=== PATIENT | female | born 1995 | race African-American/Black ===

== ENCOUNTER 2018-06-12 03:11 | Inpatient (IN) ==
[2018-06-12] MEDS ORDERED: MEPERIDINE 50 MG/1 ML VIAL IV PRN (03:33)
[2018-06-12] MEDS ORDERED: BUTORPHANOL 2 MG/ML VIAL IV PRN (03:33)
[2018-06-12] MEDS ORDERED: ONDANSETRON 4 MG/2 ML VIAL IV PRN (03:33)
[2018-06-12] MEDS ORDERED: PROMETHAZINE 25 MG/1 ML VIAL IM ONE (03:35)
[2018-06-12] MEDS ORDERED: FAMOTIDINE 20 MG/2 ML VIAL IV ONE (03:35)
[2018-06-12] MEDS ORDERED: LACTATED RINGERS 1,000 ML IV ONE (03:35)
[2018-06-12] MEDS ORDERED: CITRIC ACID/SODIUM CITRATE 30 ML UDCUP PO ONE (03:35)
[2018-06-12] MEDS ORDERED: diphenhydrAMINE 50 MG/1 ML VIAL IV PRN (03:35)
[2018-06-12] MEDS ORDERED: hydrOXYzine HCL 25 MG/1 ML VIAL IM PRN (03:35)
[2018-06-12] MEDS ORDERED: ePHEDrine 50 MG/ML AMP IV PRN (03:35)
[2018-06-12] MEDS ORDERED: NALOXONE 0.4 MG/ML VIAL IV PRN (03:35)
[2018-06-12 03:58] LABS: Basophils % 0.4 % (0.0-0.8); Eosinophils # 0.1 10*3/uL (0.0-0.87); Eosinophils % 0.7 % (0.00-10.9); Hematocrit 40.6 VOL% (35.7-47.0); Hemoglobin 13.1 GM/DL (12.0-16.0); Immature Granulocytes % 0.2 %; Immature Granulocytes Absolute 0.02 #; Lymphocytes # 1.9 10*3/uL (1.4-4.0); Mean Corpuscular HGB Conc 32.3 GM/DL (32-36); Mean Corpuscular Hemoglobin 31 PG (27-34); Mean Corpuscular Volume 96.2 FL (87-102); Mean Platelet Volume 11.4 FL (9.6-12.0); Monocytes # 0.8 10*3/uL (0.11-0.8); Monocytes % 10.1 % (1.7-12.7); Neutrophils # 5.3 10*3/uL (1.4-7.4); Neutrophils % 65.6 % (38.7-73.9); Platelet Count 168 T/CUMM (130-400); Red Blood Count 4.22 MC/CUMM (3.8-5.5); Red Cell Distribution Width 13.7 % (9.3-17.3)
[2018-06-12] MEDS ORDERED: OXYTOCIN/LR 20 UNIT/1,000 ML BAG IV SCH (04:00)
[2018-06-12] MEDS ORDERED: fentaNYL 2 MCG/ROPIV 0.2% EPID 100 ML EPIDURAL SCH (04:00)
[2018-06-12] MEDS ORDERED: LACTATED RINGERS 1,000 ML IV SCH ×2 (04:00→13:00)
[2018-06-12] MEDS ORDERED: miSOPROStol 200 MCG TABLET ONE (10:22)
[2018-06-12] MEDS ORDERED: LIDOCAINE 1% 50 ML VIAL ONE (10:22)
[2018-06-12] MEDS ORDERED: CARBOPROST TROMETHAMINE 250 MCG/ML AMP IM ONE (10:22)
[2018-06-12] MEDS ORDERED: METHYLERGONOVINE 0.2 MG/1 ML AMP ONE (10:22)
[2018-06-12] MEDS ORDERED: MAGNESIUM HYDROXIDE SUSP 30 ML UDCUP PO PRN (12:33)
[2018-06-12] MEDS ORDERED: ACETAMINOPHEN 325 MG TABLET PO PRN (12:33)
[2018-06-12] MEDS ORDERED: BISACODYL 10 MG SUPP RECTAL PRN (12:33)
[2018-06-12] MEDS: DOCUSATE SODIUM 100 MG CAPSULE PO SCH (20:44)
[2018-06-12] MEDS: IBUPROFEN 800 MG TABLET PO PRN (21:19)
[2018-06-13 05:21] LABS: Basophils % 0.3 % (0.0-0.8); Eosinophils # 0.1 10*3/uL (0.0-0.87); Eosinophils % 0.7 % (0.00-10.9); Hematocrit 38.7 VOL% (35.7-47.0); Hemoglobin 12.5 GM/DL (12.0-16.0); Immature Granulocytes % 0.4 %; Immature Granulocytes Absolute 0.05 #; Lymphocytes % 16.9 % (21.3-54.2); Mean Corpuscular HGB Conc 32.3 GM/DL (32-36); Mean Corpuscular Hemoglobin 31 PG (27-34); Mean Corpuscular Volume 95.3 FL (87-102); Mean Platelet Volume 11.6 FL (9.6-12.0); Monocytes # 1.1 10*3/uL (0.11-0.8); Monocytes % 9.4 % (1.7-12.7); Neutrophils # 8.7 10*3/uL (1.4-7.4); Neutrophils % 72.3 % (38.7-73.9); Platelet Count 157 T/CUMM (130-400); Red Blood Count 4.06 MC/CUMM (3.8-5.5); Red Cell Distribution Width 13.9 % (9.3-17.3); White Blood Count 12.1 T/CUMM (4-12)
[2018-06-13] MEDS: MULTIVITAMIN (PRENATAL) TABLET PO SCH (10:08)
[2018-06-13] MEDS: DOCUSATE SODIUM 100 MG CAPSULE PO SCH ×2 (10:08→20:09)
[2018-06-13] MEDS: IBUPROFEN 800 MG TABLET PO PRN (11:35)
[2018-06-14 07:16] VITALS: BP 119/80
[2018-06-14] MEDS: MULTIVITAMIN (PRENATAL) TABLET PO SCH (09:29)
[2018-06-14] MEDS: DOCUSATE SODIUM 100 MG CAPSULE PO SCH (09:29)
[2018-06-14] MEDS ORDERED: DIPH/TET/ACEL PERT BOOSTER VACCINE 0.5 ML VIAL IM ONE (09:43)
== END 2018-06-14 10:30 | disposition home or self-care (01) | DRG 560 ==
LOC: N.LDOUT 03:11 → N.LD 03:45 → N.OB 15:16
PROVIDERS: ADMIT Obstetrics & Gynecology; ATTEND Obstetrics & Gynecology

== ENCOUNTER 2020-04-12 08:33 | Inpatient (IN) ==
[2020-04-12 09:43] LABS: Basophils % 0.2 % (0.0-0.8); Hematocrit 43.2 VOL% (35.7-47.0); Hemoglobin 14.6 GM/DL (12.0-16.0); Immature Granulocytes % 0.2 %; Immature Granulocytes Absolute 0.01 #; Lymphocytes # 0.8 10*3/uL (1.4-4.0); Lymphocytes % 16.1 % (21.3-54.2); Mean Corpuscular HGB Conc 33.8 GM/DL (32-36); Mean Corpuscular Volume 93.5 FL (87-102); Mean Platelet Volume 9.3 FL (9.6-12.0); Monocytes % 7.7 % (1.7-12.7); Neutrophils % 75.8 % (38.7-73.9); Platelet Count 225 T/CUMM (130-400); Red Blood Count 4.62 MC/CUMM (3.8-5.5); Red Cell Distribution Width 13.4 % (9.3-17.3); White Blood Count 5.2 T/CUMM (4-12)
[2020-04-12 10:04] LABS: Alanine Aminotransferase 55 U/L (13-56); Albumin 2.6 G/DL (3.4-5.0); Alkaline Phosphatase 118 U/L (45-117); Aspartate Amino Transferase 55 U/L (0-37); Bilirubin,Total < 0.39 MG/DL (0.2-1.0); Blood Urea Nitrogen 4 MG/DL (7-18); Calcium 8.5 MG/DL (8.5-10.1); Estimated Glom Filtration Rate 200 ML/MIN; Glucose 137 MG/DL (74-106); Osmolality,Calculated 271.8 MOS/KG (273-304); Total Protein 6.5 G/DL (6.4-8.3)
[2020-04-12] MEDS ORDERED: cefTRIAXone 1,000 MG in SODIUM CHLORIDE 0.9% 100 ML IV STA (11:13)
[2020-04-12] MEDS ORDERED: SODIUM CHLORIDE 0.9% 1,000 ML IV STA (12:02)
[2020-04-12] MEDS ORDERED: DEXTROSE 50% 25 GM/50 ML VIAL IV PRN (13:38)
[2020-04-12] MEDS ORDERED: GLUCAGON 1 MG VIAL IM PRN (13:38)
[2020-04-12] MEDS ORDERED: AZITHROMYCIN INJ 500 MG in SODIUM CHLORIDE 0.9% 250 ML IV ONE (16:06)
[2020-04-12] MEDS: SODIUM CHLORIDE 0.45% 1,000 ML IV SCH (17:00)
[2020-04-12] MEDS: HEPARIN 5,000 UNIT/1 ML VIAL SUBCUT SCH (21:06)
[2020-04-13] MEDS: SODIUM CHLORIDE 0.45% 1,000 ML IV SCH ×3 (03:39→22:03)
[2020-04-13 04:50] LABS: Alanine Aminotransferase 68 U/L (13-56); Albumin 1.7 G/DL (3.4-5.0); Alkaline Phosphatase 108 U/L (45-117); Aspartate Amino Transferase 73 U/L (0-37); Bilirubin,Total < 0.39 MG/DL (0.2-1.0); Blood Urea Nitrogen 4 MG/DL (7-18); Estimated Glom Filtration Rate 213 ML/MIN; Glucose 105 MG/DL (74-106); Osmolality,Calculated 269.8 MOS/KG (273-304)
[2020-04-13 07:23] LABS: Hematocrit 37.8 VOL% (35.7-47.0); Hemoglobin 12.8 GM/DL (12.0-16.0); Immature Granulocytes % 0.6 %; Immature Granulocytes Absolute 0.03 #; Lymphocytes # 0.9 10*3/uL (1.4-4.0); Lymphocytes % 17.3 % (21.3-54.2); Mean Corpuscular HGB Conc 33.9 GM/DL (32-36); Mean Corpuscular Volume 93.1 FL (87-102); Monocytes % 7.7 % (1.7-12.7); Neutrophils % 74.4 % (38.7-73.9); Platelet Count 238 T/CUMM (130-400); Red Blood Count 4.06 MC/CUMM (3.8-5.5); Red Cell Distribution Width 13.5 % (9.3-17.3); White Blood Count 4.9 T/CUMM (4-12)
[2020-04-13 07:51] LABS: Band Neutrophils 1 % (0-10); Hypochromasia Slight; Lymphocytes 15 % (20-55); Microcytosis 1+; Platelet Estimate Adequate; Segmented Neutrophils 76 % (50-85); Total Cells Counted 100
[2020-04-13] MEDS: HEPARIN 5,000 UNIT/1 ML VIAL SUBCUT SCH ×2 (10:35→22:00)
[2020-04-13] MEDS: AZITHROMYCIN 250 MG TABLET PO SCH (10:35)
[2020-04-13] MEDS ORDERED: ACETAMINOPHEN 325 MG TABLET PO PRN (16:02)
[2020-04-13] MEDS ORDERED: ACETAMINOPHEN 325 MG TABLET PO SCH (22:00)
[2020-04-14 05:48] LABS: Basophils % 0.2 % (0.0-0.8); Hematocrit 38.7 VOL% (35.7-47.0); Immature Granulocytes % 0.3 %; Immature Granulocytes Absolute 0.02 #; Lymphocytes # 0.9 10*3/uL (1.4-4.0); Lymphocytes % 15.3 % (21.3-54.2); Mean Corpuscular HGB Conc 33.6 GM/DL (32-36); Mean Platelet Volume 9.2 FL (9.6-12.0); Monocytes % 9.4 % (1.7-12.7); Neutrophils % 74.8 % (38.7-73.9); Platelet Count 275 T/CUMM (130-400); Red Blood Count 4.16 MC/CUMM (3.8-5.5); Red Cell Distribution Width 13.4 % (9.3-17.3); White Blood Count 5.9 T/CUMM (4-12)
[2020-04-14 06:14] LABS: Hypochromasia 1+; Microcytosis 1+; Platelet Estimate Normal
[2020-04-14 06:23] LABS: Calcium 8.3 MG/DL (8.5-10.1); Osmolality,Calculated 269.8 MOS/KG (273-304)
[2020-04-14] MEDS: SODIUM CHLORIDE 0.45% 1,000 ML IV SCH ×3 (06:23→15:10)
[2020-04-14] MEDS: HEPARIN 5,000 UNIT/1 ML VIAL SUBCUT SCH (10:02)
[2020-04-14] MEDS: AZITHROMYCIN 250 MG TABLET PO SCH (10:03)
[2020-04-14] MEDS ORDERED: BETAMETH SODIUM PHOS/ACETATE 30 MG/5 ML VIAL ONE (11:05)
[2020-04-14] MEDS ORDERED: BETAMETH SODIUM PHOS/ACETATE 30 MG/5 ML VIAL IM SCH (12:00)
[2020-04-14 15:03] LABS: INR 0.9; PT Patient Result 9.7 SECS (9.8-11.9); Partial Thromboplastin Time 35.5 SECS (23.9-33.8)
[2020-04-14] MEDS ORDERED: CITRIC ACID/SODIUM CITRATE 30 ML UDCUP ONE (17:38)
[2020-04-14] MEDS ORDERED: FAMOTIDINE 20 MG/2 ML VIAL IV ONE ×2 (17:38→17:39)
[2020-04-14] MEDS ORDERED: ceFAZolin 2,000 MG in PREMIX 1 EACH IV ONE (17:38)
[2020-04-14] MEDS ORDERED: CITRIC ACID/SODIUM CITRATE 30 ML UDCUP PO ONE (17:38)
[2020-04-14] MEDS ORDERED: OXYTOCIN/LR 30 UNIT/1,000 ML BAG IV ONE (17:44)
[2020-04-14] MEDS ORDERED: miSOPROStoL 200 MCG TABLET ONE (17:44)
[2020-04-14] MEDS ORDERED: OXYTOCIN 10 UNIT/ML VIAL IM ONE (17:44)
[2020-04-14] MEDS ORDERED: CARBOPROST TROMETHAMINE 250 MCG/ML AMP IM ONE (17:44)
[2020-04-14] MEDS ORDERED: TRANEXAMIC ACID 1,000 MG/10 ML VIAL ONE (17:44)
[2020-04-14] MEDS ORDERED: METHYLERGONOVINE 0.2 MG/1 ML AMP ONE (17:44)
[2020-04-14] MEDS ORDERED: SODIUM CHLORIDE 0.9% 0 ML IV ONE (17:45)
[2020-04-14] MEDS ORDERED: OXYTOCIN 10 UNIT/ML VIAL ONE (17:45)
[2020-04-14] MEDS ORDERED: LACTATED RINGERS 1,000 ML IV ONE (17:49)
[2020-04-14] MEDS ORDERED: SUCCINYLCHOLINE 200 MG/10 ML VIAL ONE (18:32)
[2020-04-14] MEDS ORDERED: propofoL 200 MG/20 ML VIAL IV ONE (18:32)
[2020-04-14 18:34] LABS: Bilirubin,Urine Negative (Negative); Blood, Urine Negative (Negative); Glucose,Urine (UA) Negative (Negative); Ketones,Urine 20 mg/dL (Negative); Mucus,Urine Occasional /LPF (Occasional); Nitrite,Urine Negative (Negative); Protein,Urine Negative; RBC,Urine 1 /HPF (0-4); Squamous Epithelial Cell,Urine Occasional /HPF (0-10); Urine Appearance CLEAR (Clear); Urine Color Yellow (Yellow); Urine Specific Gravity 1.009 (1.001-1.035); WBC,Urine 1 /HPF (0-6)
[2020-04-14] MEDS ORDERED: fentaNYL 250 MCG/5 ML VIAL ONE (19:04)
[2020-04-14 19:09] LABS: Cord Arterial Blood HCO3 22.6 MMOL/L
[2020-04-14 19:12] LABS: Cord Venous Blood PCO2 49.7 MMHG; Cord Venous Blood PO2 32.1
[2020-04-14] MEDS ORDERED: MAGNESIUM HYDROXIDE SUSP 30 ML UDCUP PO PRN (20:01)
[2020-04-14] MEDS ORDERED: SIMETHICONE CHEW 80 MG TABLET PO PRN (20:01)
[2020-04-14] MEDS ORDERED: OXYTOCIN/LR 20 UNIT/1,000 ML BAG IV ONE (20:01)
[2020-04-14] MEDS ORDERED: ACETAMINOPHEN 325 MG TABLET PO PRN (20:01)
[2020-04-14] MEDS ORDERED: ONDANSETRON 4 MG/2 ML VIAL IV PRN (20:01)
[2020-04-14] MEDS ORDERED: RHO(D) IMMUNE GLOBULIN 300 MCG SYRINGE IM ONE (20:01)
[2020-04-14] MEDS ORDERED: MEPERIDINE 50 MG/1 ML VIAL IV PRN (20:03)
[2020-04-14] MEDS ORDERED: ONDANSETRON 4 MG/2 ML VIAL ONE (20:24)
[2020-04-14] MEDS ORDERED: ROCURONIUM 50 MG/5 ML VIAL IV ONE (20:24)
[2020-04-14] MEDS ORDERED: PHENYLEPHRINE 1 MG/10 ML SYRINGE IV ONE (20:24)
[2020-04-14] MEDS ORDERED: SEVOFLURANE 1 UNIT/15 MINUTE INH ONE (20:24)
[2020-04-14] MEDS: HYDROmorphone 2 MG/1 ML VIAL IV PRN ×2 (20:50→22:55)
[2020-04-14] MEDS: LACTATED RINGERS 1,000 ML IV SCH (23:02)
[2020-04-14] MEDS: DOCUSATE SODIUM 100 MG CAPSULE PO SCH (23:03)
[2020-04-15] MEDS: HYDROmorphone 2 MG/1 ML VIAL IV PRN ×3 (02:20→11:53)
[2020-04-15] MEDS: LACTATED RINGERS 1,000 ML IV SCH ×2 (05:23→17:22)
[2020-04-15 05:55] LABS: Basophils % 0.1 % (0.0-0.8); Hematocrit 41.1 VOL% (35.7-47.0); Hemoglobin 13.8 GM/DL (12.0-16.0); Immature Granulocytes % 0.5 %; Immature Granulocytes Absolute 0.04 #; Lymphocytes % 11.7 % (21.3-54.2); Mean Corpuscular HGB Conc 33.6 GM/DL (32-36); Mean Corpuscular Volume 94.5 FL (87-102); Mean Platelet Volume 8.8 FL (9.6-12.0); Monocytes % 7.6 % (1.7-12.7); Neutrophils % 80.1 % (38.7-73.9); Platelet Count 288 T/CUMM (130-400); Red Blood Count 4.35 MC/CUMM (3.8-5.5); Red Cell Distribution Width 13.2 % (9.3-17.3); White Blood Count 8.2 T/CUMM (4-12)
[2020-04-15 06:20] LABS: Calcium 8.5 MG/DL (8.5-10.1); Osmolality,Calculated 271.7 MOS/KG (273-304)
[2020-04-15] MEDS ORDERED: REMDESIVIR 200 MG in SODIUM CHLORIDE 0.9% 210 ML IV ONE (10:00)
[2020-04-15] MEDS: MULTIVITAMIN (PRENATAL) TABLET PO SCH (10:09)
[2020-04-15] MEDS: AZITHROMYCIN 250 MG TABLET PO SCH (10:09)
[2020-04-15] MEDS: DOCUSATE SODIUM 100 MG CAPSULE PO SCH ×2 (10:09→23:22)
[2020-04-15] MEDS ORDERED: SODIUM CHLORIDE 0.9% 1,000 ML IV PRN (13:35)
[2020-04-15] MEDS: IBUPROFEN 800 MG TABLET PO PRN (16:05)
[2020-04-16 03:17] LABS: Basophils % 0.1 % (0.0-0.8); Eosinophils % 0.1 % (0.00-10.9); Hematocrit 39.1 VOL% (35.7-47.0); Hemoglobin 13.1 GM/DL (12.0-16.0); Immature Granulocytes % 0.5 %; Immature Granulocytes Absolute 0.04 #; Lymphocytes # 1.1 10*3/uL (1.4-4.0); Lymphocytes % 13.9 % (21.3-54.2); Mean Corpuscular HGB Conc 33.5 GM/DL (32-36); Mean Platelet Volume 8.8 FL (9.6-12.0); Monocytes % 8.4 % (1.7-12.7); Platelet Count 320 T/CUMM (130-400); Red Blood Count 4.16 MC/CUMM (3.8-5.5); Red Cell Distribution Width 13.3 % (9.3-17.3); White Blood Count 7.9 T/CUMM (4-12)
[2020-04-16 03:33] LABS: Calcium 8.9 MG/DL (8.5-10.1); Osmolality,Calculated 274.5 MOS/KG (273-304)
[2020-04-16] MEDS: HYDROmorphone 2 MG/1 ML VIAL IV PRN ×2 (08:17→22:11)
[2020-04-16] MEDS: REMDESIVIR 100 MG in SODIUM CHLORIDE 0.9% 100 ML IV SCH (10:47)
[2020-04-16] MEDS: MULTIVITAMIN (PRENATAL) TABLET PO SCH ×3 (10:50→15:46)
[2020-04-16] MEDS: DOCUSATE SODIUM 100 MG CAPSULE PO SCH ×2 (10:50→22:11)
[2020-04-16] MEDS: IBUPROFEN 800 MG TABLET PO PRN (10:51)
[2020-04-16] MEDS: AZITHROMYCIN 250 MG TABLET PO SCH (10:54)
[2020-04-16] MEDS: SODIUM CHLORIDE 0.45% 1,000 ML IV SCH ×2 (15:43→15:44)
[2020-04-16] MEDS: LACTATED RINGERS 1,000 ML IV SCH ×2 (15:45→22:10)
[2020-04-17] MEDS: LACTATED RINGERS 1,000 ML IV SCH ×2 (04:38→13:59)
[2020-04-17 07:06] LABS: Basophils % 0.2 % (0.0-0.8); Eosinophils % 0.6 % (0.00-10.9); Hematocrit 39.2 VOL% (35.7-47.0); Immature Granulocytes % 0.3 %; Immature Granulocytes Absolute 0.02 #; Lymphocytes % 16.5 % (21.3-54.2); Mean Corpuscular HGB Conc 33.2 GM/DL (32-36); Mean Corpuscular Volume 95.4 FL (87-102); Mean Platelet Volume 8.8 FL (9.6-12.0); Monocytes % 9.3 % (1.7-12.7); Neutrophils % 73.1 % (38.7-73.9); Platelet Count 346 T/CUMM (130-400); Red Blood Count 4.11 MC/CUMM (3.8-5.5); Red Cell Distribution Width 13.4 % (9.3-17.3); White Blood Count 6.3 T/CUMM (4-12)
[2020-04-17 07:29] LABS: Calcium 8.6 MG/DL (8.5-10.1); Osmolality,Calculated 279.1 MOS/KG (273-304)
[2020-04-17] MEDS: MULTIVITAMIN (PRENATAL) TABLET PO SCH ×2 (10:15)
[2020-04-17] MEDS: REMDESIVIR 100 MG in SODIUM CHLORIDE 0.9% 100 ML IV SCH (10:15)
[2020-04-17] MEDS: DOCUSATE SODIUM 100 MG CAPSULE PO SCH ×2 (10:15→21:40)
[2020-04-17] MEDS: ENOXAPARIN 40 MG/0.4 ML SYRINGE SUBCUT SCH (12:15)
[2020-04-18 05:51] LABS: Calcium 8.2 MG/DL (8.5-10.1); Osmolality,Calculated 277.3 MOS/KG (273-304)
[2020-04-18 06:09] LABS: Basophils % 0.2 % (0.0-0.8); Eosinophils # 0.1 10*3/uL (0.0-0.87); Eosinophils % 1.5 % (0.00-10.9); Hemoglobin 12.7 GM/DL (12.0-16.0); Immature Granulocytes % 0.5 %; Immature Granulocytes Absolute 0.03 #; Lymphocytes # 1.4 10*3/uL (1.4-4.0); Lymphocytes % 26.3 % (21.3-54.2); Mean Corpuscular HGB Conc 32.6 GM/DL (32-36); Mean Corpuscular Volume 95.6 FL (87-102); Mean Platelet Volume 9.6 FL (9.6-12.0); Monocytes % 11.5 % (1.7-12.7); Platelet Count 358 T/CUMM (130-400); Red Blood Count 4.08 MC/CUMM (3.8-5.5); Red Cell Distribution Width 13.2 % (9.3-17.3); White Blood Count 5.5 T/CUMM (4-12)
[2020-04-18] MEDS: LACTATED RINGERS 1,000 ML IV SCH ×3 (07:17→16:30)
[2020-04-18] MEDS: DOCUSATE SODIUM 100 MG CAPSULE PO SCH ×2 (08:38→22:15)
[2020-04-18] MEDS: MULTIVITAMIN (PRENATAL) TABLET PO SCH ×2 (08:38)
[2020-04-18] MEDS: REMDESIVIR 100 MG in SODIUM CHLORIDE 0.9% 100 ML IV SCH (09:11)
[2020-04-18] MEDS ORDERED: cefTRIAXone 1,000 MG in SYRINGE 1 EACH IV SCH (11:00)
[2020-04-18] MEDS: ENOXAPARIN 40 MG/0.4 ML SYRINGE SUBCUT SCH (12:11)
[2020-04-18] MEDS: AZITHROMYCIN 250 MG TABLET PO SCH (12:12)
[2020-04-19] MEDS: LACTATED RINGERS 1,000 ML IV SCH ×2 (00:16→07:03)
[2020-04-19 05:33] VITALS: BP 140/94
[2020-04-19 06:47] LABS: Basophils % 0.4 % (0.0-0.8); Eosinophils # 0.1 10*3/uL (0.0-0.87); Eosinophils % 2.6 % (0.00-10.9); Hematocrit 41.6 VOL% (35.7-47.0); Hemoglobin 13.6 GM/DL (12.0-16.0); Immature Granulocytes % 0.4 %; Immature Granulocytes Absolute 0.02 #; Lymphocytes # 1.4 10*3/uL (1.4-4.0); Lymphocytes % 28.9 % (21.3-54.2); Mean Corpuscular HGB Conc 32.7 GM/DL (32-36); Mean Corpuscular Volume 95.2 FL (87-102); Mean Platelet Volume 9.3 FL (9.6-12.0); Monocytes % 12.9 % (1.7-12.7); Neutrophils % 54.8 % (38.7-73.9); Platelet Count 422 T/CUMM (130-400); Red Blood Count 4.37 MC/CUMM (3.8-5.5); Red Cell Distribution Width 13.1 % (9.3-17.3)
[2020-04-19 06:58] LABS: Calcium 8.7 MG/DL (8.5-10.1); Osmolality,Calculated 277.3 MOS/KG (273-304)
[2020-04-19] MEDS: AZITHROMYCIN 250 MG TABLET PO SCH (10:05)
[2020-04-19] MEDS: DOCUSATE SODIUM 100 MG CAPSULE PO SCH (10:05)
[2020-04-19] MEDS: MULTIVITAMIN (PRENATAL) TABLET PO SCH (10:05)
[2020-04-19] MEDS: REMDESIVIR 100 MG in SODIUM CHLORIDE 0.9% 100 ML IV SCH (10:31)
== END 2020-04-19 12:15 | disposition home or self-care (01) | DRG 540 ==
LOC: N.ED 08:33 → SUATTDRO 13:38 → N.EDINP 13:38 → N.2E 04-13 12:56 → N.LD 04-14 11:58 → N.2E 04-16 15:58
PROVIDERS: ADMIT Nurse Practitioner Adult Health; ATTEND Internal Medicine
PROC: LDCSECT (ICD-10-PCS; 2020-04-14 19:00)

== ENCOUNTER 2022-02-16 22:26 | Inpatient (IN) ==
[2022-02-16 22:55] LABS: Bacteria,Urine Occasional /HPF (Few); Bilirubin,Urine Negative (Negative); Blood, Urine Negative (Negative); Glucose,Urine (UA) Negative (Negative); Ketones,Urine Negative (Negative); Mucus,Urine Occasional /LPF (Occasional); Nitrite,Urine Negative (Negative); Protein,Urine Negative (Negative); Squamous Epithelial Cell,Urine Moderate /HPF (0-10); Urine Appearance CLOUDY (Clear); Urine Color Yellow (Yellow); Urine Specific Gravity 1.013 (1.001-1.035); Urine Urobilinogen < 2.0 eU/dL (<2.0)
[2022-02-16] MEDS ORDERED: TERBUTALINE 1 MG/1 ML VIAL SUBCUT ONE (23:11)
[2022-02-16] MEDS ORDERED: LEVOFLOXACIN INJ 500 MG/100 ML PREMIX IV ONE (23:11)
[2022-02-16] MEDS ORDERED: BETAMETH SODIUM PHOS/ACETATE 30 MG/5 ML VIAL IM ONE (23:12)
[2022-02-16] MEDS: LACTATED RINGERS 1,000 ML IV SCH (23:34)
[2022-02-17] MEDS ORDERED: BETAMETH SODIUM PHOS/ACETATE 30 MG/5 ML VIAL IM ONE (08:00)
[2022-02-17] MEDS: LACTATED RINGERS 1,000 ML IV SCH (09:41)
[2022-02-17] MEDS ORDERED: miSOPROStoL 200 MCG TABLET RECTAL PRN (09:57)
[2022-02-17] MEDS ORDERED: OXYTOCIN/LR 20 UNIT/1,000 ML BAG IV ONE ×2 (09:57→15:13)
[2022-02-17] MEDS ORDERED: TRANEXAMIC ACID 1,000 MG in SODIUM CHLORIDE 0.9% 100 ML IV PRN (09:57)
[2022-02-17] MEDS ORDERED: BUTORPHANOL 2 MG/ML VIAL IV PRN (09:57)
[2022-02-17] MEDS ORDERED: ONDANSETRON 4 MG/2 ML VIAL IV PRN ×2 (09:57→15:13)
[2022-02-17] MEDS ORDERED: CARBOPROST TROMETHAMINE 250 MCG/ML AMP IM PRN (09:57)
[2022-02-17] MEDS ORDERED: METHYLERGONOVINE 0.2 MG/1 ML AMP IM PRN (09:57)
[2022-02-17] MEDS ORDERED: LACTATED RINGERS 1,000 ML IV SCH ×2 (10:00→15:30)
[2022-02-17] MEDS ORDERED: AMPICILLIN INJ 2,000 MG in SODIUM CHLORIDE 0.9% 100 ML IV ONE (10:27)
[2022-02-17 10:30] LABS: Basophils % 0.1 % (0.0-0.8); Hematocrit 40.4 VOL% (35.7-47.0); Hemoglobin 13.3 GM/DL (12.0-16.0); Immature Granulocytes % 0.6 %; Immature Granulocytes Absolute 0.06 #; Lymphocytes # 1.1 10*3/uL (1.4-4.0); Mean Corpuscular HGB Conc 32.9 GM/DL (32-36); Mean Corpuscular Volume 96.7 FL (87-102); Mean Platelet Volume 10.6 FL (9.6-12.0); Monocytes # 0.2 10*3/uL (0.11-0.8); Monocytes % 1.6 % (1.7-12.7); Neutrophils % 87.7 % (38.7-73.9); Platelet Count 170 T/CUMM (130-400); Red Blood Count 4.18 MC/CUMM (3.8-5.5); Red Cell Distribution Width 13.5 % (9.3-17.3); White Blood Count 10.7 T/CUMM (4-12)
[2022-02-17] MEDS ORDERED: FAMOTIDINE 20 MG/2 ML VIAL IV ONE (13:17)
[2022-02-17] MEDS ORDERED: CITRIC ACID/SODIUM CITRATE 30 ML UDCUP PO ONE (13:17)
[2022-02-17] MEDS ORDERED: ceFAZolin 2,000 MG/50 ML DUPLEX IV ONE (13:17)
[2022-02-17] MEDS ORDERED: OXYTOCIN/LR 30 UNIT/1,000 ML BAG IV ONE (13:29)
[2022-02-17] MEDS ORDERED: buprenorphine HCL 0.3 MG/ML VIAL ONE (13:58)
[2022-02-17] MEDS ORDERED: BUPIVACAINE SPINAL 0.75% 2 ML AMP SPINAL ONE (13:58)
[2022-02-17] MEDS ORDERED: KETOROLAC 30 MG/1 ML VIAL ONE (13:58)
[2022-02-17] MEDS ORDERED: ACETAMINOPHEN INJ 1,000 MG/100 ML VIAL IV ONE (13:58)
[2022-02-17] MEDS ORDERED: ONDANSETRON 4 MG/2 ML VIAL ONE (13:58)
[2022-02-17] MEDS ORDERED: DEXAMETHASONE 4 MG/1 ML VIAL ONE (13:58)
[2022-02-17] MEDS ORDERED: PHENYLEPHRINE 1 MG/10 ML SYRINGE IV ONE (13:58)
[2022-02-17] MEDS ORDERED: OXYTOCIN 10 UNIT/ML VIAL IM ONE (14:05)
[2022-02-17 14:55] LABS: Cord Arterial Blood HCO3 21.1 MMOL/L
[2022-02-17 14:57] LABS: Bilirubin,Urine Negative (Negative); Blood, Urine Negative (Negative); Glucose,Urine (UA) Negative (Negative); Ketones,Urine 80 mg/dL (Negative); Mucus,Urine Occasional /LPF (Occasional); Nitrite,Urine Negative (Negative); Protein,Urine Negative (Negative); RBC,Urine <1 /HPF (0-4); Urine Appearance CLEAR (Clear); Urine Color Yellow (Yellow); Urine Specific Gravity 1.011 (1.001-1.035); Urine Urobilinogen < 2.0 eU/dL (<2.0)
[2022-02-17 14:58] LABS: Cord Venous Blood PCO2 38.1 MMHG; Cord Venous Blood PO2 50.8
[2022-02-17] MEDS ORDERED: AMPICILLIN INJ 1,000 MG in SODIUM CHLORIDE 0.9% 100 ML IV SCH (15:00)
[2022-02-17] MEDS ORDERED: ACETAMINOPHEN 325 MG TABLET PO PRN (15:13)
[2022-02-17] MEDS ORDERED: IBUPROFEN 800 MG TABLET PO PRN (15:13)
[2022-02-17] MEDS ORDERED: RHO(D) IMMUNE GLOBULIN 300 MCG SYRINGE IM ONE (15:13)
[2022-02-17] MEDS: DOCUSATE SODIUM 100 MG CAPSULE PO SCH (21:18)
[2022-02-17] MEDS: SIMETHICONE CHEW 80 MG TABLET PO PRN (21:18)
[2022-02-17 23:18] LABS: Basophils % 0.1 % (0.0-0.8); Hematocrit 35.6 VOL% (35.7-47.0); Hemoglobin 11.9 GM/DL (12.0-16.0); Immature Granulocytes % 0.7 %; Immature Granulocytes Absolute 0.12 #; Lymphocytes # 1.4 10*3/uL (1.4-4.0); Lymphocytes % 8.2 % (21.3-54.2); Mean Corpuscular HGB Conc 33.4 GM/DL (32-36); Mean Corpuscular Volume 95.7 FL (87-102); Mean Platelet Volume 10.5 FL (9.6-12.0); Monocytes # 1.3 10*3/uL (0.11-0.8); Monocytes % 7.4 % (1.7-12.7); Neutrophils % 83.6 % (38.7-73.9); Platelet Count 174 T/CUMM (130-400); Red Blood Count 3.72 MC/CUMM (3.8-5.5); Red Cell Distribution Width 13.2 % (9.3-17.3); White Blood Count 17.4 T/CUMM (4-12)
[2022-02-17] MEDS: KETOROLAC 30 MG/1 ML VIAL IV SCH ×2 (23:45→23:46)
[2022-02-17] MEDS: ACETAMINOPHEN 500 MG TABLET PO SCH ×2 (23:45→23:46)
[2022-02-18 05:01] LABS: Basophils % 0.1 % (0.0-0.8); Hematocrit 33.8 VOL% (35.7-47.0); Hemoglobin 11.3 GM/DL (12.0-16.0); Immature Granulocytes % 0.8 %; Immature Granulocytes Absolute 0.13 #; Lymphocytes # 1.5 10*3/uL (1.4-4.0); Lymphocytes % 9.4 % (21.3-54.2); Mean Corpuscular HGB Conc 33.4 GM/DL (32-36); Mean Corpuscular Volume 96.6 FL (87-102); Mean Platelet Volume 10.9 FL (9.6-12.0); Monocytes # 1.2 10*3/uL (0.11-0.8); Monocytes % 7.3 % (1.7-12.7); Neutrophils % 82.4 % (38.7-73.9); Platelet Count 178 T/CUMM (130-400); Red Cell Distribution Width 13.2 % (9.3-17.3); White Blood Count 16.2 T/CUMM (4-12)
[2022-02-18] MEDS: ACETAMINOPHEN 500 MG TABLET PO SCH ×2 (05:41→12:48)
[2022-02-18] MEDS: KETOROLAC 30 MG/1 ML VIAL IV SCH ×2 (05:42→12:49)
[2022-02-18] MEDS: DOCUSATE SODIUM 100 MG CAPSULE PO SCH ×2 (09:46→21:05)
[2022-02-18] MEDS: MAGNESIUM HYDROXIDE SUSP 30 ML UDCUP PO PRN ×2 (09:46→21:05)
[2022-02-18] MEDS: MULTIVITAMIN (PRENATAL) TABLET PO SCH (09:46)
[2022-02-18] MEDS: METOCLOPRAMIDE 10 MG TABLET PO SCH ×2 (09:47→23:04)
[2022-02-18] MEDS: SIMETHICONE CHEW 80 MG TABLET PO PRN ×2 (09:47→21:05)
[2022-02-19] MEDS ORDERED: BISACODYL 10 MG SUPP RECTAL PRN (09:06)
[2022-02-19] MEDS: MULTIVITAMIN (PRENATAL) TABLET PO SCH (09:22)
[2022-02-19] MEDS: METOCLOPRAMIDE 10 MG TABLET PO SCH (09:23)
[2022-02-19] MEDS: DOCUSATE SODIUM 100 MG CAPSULE PO SCH (09:23)
[2022-02-19 15:44] VITALS: BP 121/65
== END 2022-02-19 14:15 | disposition home or self-care (01) | DRG 540 ==
LOC: N.LDOUT 22:26 → N.LD 22:29 → N.OB 02-17 18:05
PROVIDERS: ADMIT Obstetrics & Gynecology; ATTEND Obstetrics & Gynecology
PROC: LDCSECT (ICD-10-PCS; 2022-02-17 14:00)